=== PATIENT | female | born 1985 | race Caucasian/White ===

== ENCOUNTER 2017-05-03 18:12 | Outpatient (CLI) | payer MEDICAID ==
[~2017-05-03] VITALS: Ht 170.2 cm; Wt 70.1 kg
--- NOTE | 2017-05-03 19:05 | RADRPT ---
PROCEDURE: US OB biophysical profile. CLINICAL INDICATION: Intrauterine growth retardation TECHNIQUE: Multiple sonographic images of the pelvis were obtained. The images were reviewed on a PACS workstation. COMPARISON: No prior studies are available for comparison. FINDINGS: There is a single viable intrauterine gestation. Cardiac activity is present with 158 beats per min gene. There is a vertex presentation. The placenta is anterior. There is no evidence of placental abruption. There is a normal amount of amniotic fluid with an ANH = 10.3 cm. Biophysical profile: movement 2/2 tone 2/2. breathing 2/2 ANH 2/2 Total 06/22 RPTAT: AA . IMPRESSION: Normal biophysical profile. Physician Nicki Date Time Electronically viewed and signed by Physician Nicki on 05/03/2017 19:05 /
--- NOTE | 2017-05-03 19:06 | RADRPT ---
PROCEDURE: Obstetrical ultrasound CLINICAL INDICATION: IUGR TECHNIQUE: Multiple sonographic images of the pelvis were obtained. The images were reviewed on a PACS workstation. COMPARISON: None FINDINGS: The cervix is not well visualized. There is a single viable intrauterine gestation. Cardiac activity is present with 158 beats per minute. There is a vertex presentation. The placenta is anterior. There is no evidence for an abruption or placenta previa. There is a normal amount of amniotic fluid with an ANH = 10.3 cm. Measurements were made in order to determine age. The results are as follows (cm): BPD =8.70 HC =31.36 AC =31.10 FL =6.87 Estimated gestational age by ultrasound of approximately 35 weeks, 1 day. The estimated date of delivery by ultrasound is 06/06/2017. Estimated gestational age by LMP of approximately 35 weeks, 0 days. The estimated date of delivery by LMP is 06/07/2017. EFW = 2600 grams (50th percentile) IMPRESSION: Single viable intrauterine gestation of approximately 35 weeks, 1 day . The estimated date of delivery is 06/06/2017 . Dating by ultrasound is within 1 day of dating by LMP. Cephalic presentation. Normal ANH. Estimated weight is in the 50th percentile. RPTAT: EE Physician Nicki Date Time Electronically viewed and signed by Physician Nicki on 05/03/2017 19:06 /
[2017-05-03 19:29] VITALS: BP 112/64; PULSE 80; RESP 18
[2017-05-03 21:33] LABS: ADD UMIC YES; UR BILIRUBIN (Dip) NEGATIVE (NEGATIVE); UR BLOOD (Dip) TRACE (NEGATIVE); UR CLARITY CLEAR (CLEAR); UR COLOR LT. YELLOW (YELLOW); UR GLUCOSE (Dip) NEGATIVE (NEGATIVE); UR KETONES (Dip) NEGATIVE (NEGATIVE); UR LEUKOCYTE ESTERASE (Dip) 1+ (NEGATIVE); UR NITRITE (Dip) NEGATIVE (NEGATIVE); UR TOTAL PROTEIN (Dip) NEGATIVE (NEGATIVE); UR UROBILINOGEN (Dip) 0.2 E.U./dL (0.1-1.0)
--- NOTE | 2017-05-03 21:51 | TRIAGE ---
OB Triage Datetime Report Generated by CPN: 05/03/2017 21:51 Datetime: 05/03/2017 21:20 Vaginal Exam Membrane Status: Intact Datetime: 05/03/2017 20:45 EGA: 35.0 Datetime: 05/03/2017 19:24 Time of Arrival: 05/03/2017 18:04 Arrived By: Ambulatory Arrived From: Office Chief Complaint: R/O IUGR: SENT WITH ORDERS FOR NST, BPP, EFW Movement: Present Contractions: Denies/Absent Rupture of Membranes: Denies Vaginal Bleeding: None Vaginal Discharge: Denies Abdominal Trauma: Not Applicable Patient Complaints: None Time Provider Notified: 05/03/2017 21:00 Provider Notified: Dr Huffman Initial Plan: EFM x2, BPP, EFW Datetime: 05/03/2017 19:00 Stage of : OB Triage Assessment Type: Triage Maternal Assessment Level of Consciousness: Fully Conscious Headache: Denies Blurred Vision: No Respiratory Effort: Unlabored; Regular Rhythm; Equal Expansion Breath Sounds, Left: Clear and Equal Breath Sounds, Right: Clear and Equal Nausea/Vomiting: Denies RUQ Epigastric Pain: Denies Lower Extremities Edema: None Degree: None Upper Extremities Edema: None Degree: None Facial Edema: None Temperature Route: Oral Fall Risk Assessment History of Falling: (0) No Secondary Diagnosis: (0) No Ambulatory Aid: (0) Bedrest/Nurse Assist IV Therapy: (0) No Gait: (0) Normal/Bedrest/Immobile Mental Status: (0) Oriented to Own Ability Fall Score: 0 Fall Risk Score Definition: No Risk: No action required Pain Assessment Pain Scale: 0 Pain Presence: None/Denies Pain Type: N/A
[2017-05-03 21:52] LABS: UR BACTERIA FEW; UR SQUAMOUS EPITHELIAL CELL FEW; URINE RBCS 0-2 /HPF (0)
== END 2017-05-03 21:47 | disposition home or self-care (01) ==
LOC: OBT 18:12 → L-D 18:12 → OBT 21:47
PROVIDERS: ATTEND Obstetrics & Gynecology
DX: O36.5930 Maternal care for other known or suspected poor fetal growth, third trimester, not applicable or unspecified (principal); Z3A.35 35 weeks gestation of pregnancy
CPT/HCPCS: 76815; 76818; 81001; Z7500; G0463

== ENCOUNTER 2017-05-17 15:31 | Outpatient (CLI) | payer MEDICAID ==
--- NOTE | 2017-05-04 03:24 | PN ---
Triage Information Date/Time Weeks of Gestation 35 : 1 Para: 0 Diabetes: none Additional information 32 Year-old G1 with SIUP at 35 wks referred for evaluation to R/O IUGR. She has been receiving her care with Dr. Huffman. She states good movement. She denies nausea, vomiting, shortness of breath, chest pain, headache, visual changes, vaginal bleeding or LOF. Physical Exam: General: Patient appears well, alert and oriented, NAD, appropriate mood and affect ABD: gravid, soft, non-tender. Back: No CVA tenderness (B/L) LE: No clubbing, cyanosis, edema, thigh or calf tenderness bilaterally FHT: 135 bpm , moderate variability with acceleration, no deceleration-category I SVE: closed/thick/high/ceph/intact membrane Objective Heart Rate: 140's Contractions: None Assessment/Plan 32 Year-old G1 with SIUP at 35 wks referred for evaluation to R/O IUGR. OB US performed with gestational age of 35 wks. Reactive NST. BPP: 10/10. - FHR: No sign of metabolic acidosis- Category I - s/sx of labor, preeclampsia, kick count discussed with patient , she voiced understanding. All of her questions answered. - Patient was discharged home in stable condition with the appropriate discharge instructions provided. I would like patient to have close follow-up with her primary physician or outpatient clinic in 1-2 days or return to the ER for worsening symptoms or any other urgent concerns. MIKEY DASILVA May 04, 2017 03:24
[~2017-05-17] VITALS: Ht 162.6 cm; Wt 71.1 kg
--- NOTE | 2017-05-17 16:08 | RADRPT ---
PROCEDURE: US biophysical profile. CLINICAL INDICATION: Small for gestational age. TECHNIQUE: Multiple sonographic images of the uterus were obtained. The images were revi ewed on a PACS workstation. COMPARISON: 05/03/2017. FINDINGS: There is a single live intrauterine gestation. heart rate is 152 beats per minute. The position is cephalic. The placenta is anterior grade II with no abruption or previa. The ANH is 13.6 cm. (Normal = 5-20 cm.) Breathing Movement: 2 Gross Body Movement: 2 Tone: 2 Qualitative Amniotic Fluid Volume: 2 TOTAL: 8 IMPRESSION: 1. The biophysical score is 8/8. RPTAT: QQ .Erickson Ackerman MD, MD Date Time Electronically viewed and signed by .Erickson Ackerman MD, on 05/17/2017 16:07 .R/
--- NOTE | 2017-05-17 16:09 | RADRPT ---
PROCEDURE: US OB. CLINICAL INDICATION: Small for gestational age. TECHNIQUE: Multiple sonographic images of the uterus were obtained. The images were revi ewed on a PACS workstation. COMPARISON: No prior studies are available for comparison. FINDINGS: There is a single live intrauterine gestation. heart rate is 141 beats per minute. Measurements were made in order to determine age. The results are as follows: BPD = 9.27 cm. HC = 32.65 cm. AC = 33.71 cm. FL = 7.37 cm. Estimated weight is 3252 +/- 488 grams. LMP growth percentile is 72%. Menstrual age by ultrasound dates is 37 weeks 4 days. The estimated date of delivery is 06/03/2017. Position is cephalic and placenta is anterior grade II. There is no evidence for an abruption or [place] previa. IMPRESSION: 1. Single live intrauterine gestation of 37 weeks 4 days menstrual age by ultrasound dates. 2. The estimated date of delivery is 06/03/2017. RPTAT: QQ .Erickson Ackerman MD, Date Time Electronically viewed and signed by .Erickson Ackerman MD, on 05/17/2017 16:09 .R/
[2017-05-17] MEDS ORDERED: PRENAT PO (16:16)
[2017-05-17] MEDS ORDERED: FER325 PO (16:16)
[2017-05-17] MEDS ORDERED: FOLI-49 PO (16:16)
[2017-05-17] MEDS ORDERED: CALC600T11 PO (16:16)
[2017-05-17 16:17] VITALS: BP 104/75; PULSE 92; RESP 18
[2017-05-17 16:19] VITALS: Ht 162.6 cm; Wt 71.1 kg
--- NOTE | 2017-05-17 17:06 | QN ---
Documentation Comment iup 37 weeks sent for IUGR eval vss exam wnl us wnl 72 percentile a/p iup 37 weeks AGA- no IUGR dc h EMILY Lord MD May 17, 2017 17:06
--- NOTE | 2017-05-17 17:48 | TRIAGE ---
OB Triage Datetime Report Generated by CPN: 05/17/2017 16:59 Datetime: 05/17/2017 16:55 Vaginal Exam Dilatation (cms): 0.0 Exam By: KHEMANI Datetime: 05/17/2017 16:13 Assessment Type: Triage Maternal Assessment Level of Consciousness: Fully Conscious DTR's/Clonus: DTRs 2+; No Clonus Headache: Denies Blurred Vision: No Respiratory Effort: Unlabored; Regular Rhythm; Equal Expansion Breath Sounds, Left: Clear and Equal Breath Sounds, Right: Clear and Equal Nausea/Vomiting: Denies RUQ Epigastric Pain: Denies Lower Extremities Edema: None Degree: None Upper Extremities Edema: None Degree: None Facial Edema: None Fall Risk Assessment History of Falling: (0) No Secondary Diagnosis: (0) No Ambulatory Aid: (0) Bedrest/Nurse Assist IV Therapy: (0) No Gait: (0) Normal/Bedrest/Immobile Mental Status: (0) Oriented to Own Ability Fall Score: 0 Fall Risk Score Definition: No Risk: No action required Datetime: 05/17/2017 16:11 Time of Arrival: 05/17/2017 15:29 EGA: 37.0 Arrived By: Ambulatory Arrived From: Office Chief Complaint: PT SENT FROM OB OFFICE FOR R/O IUGR Movement: Present Contractions: Denies/Absent Rupture of Membranes: Denies Vaginal Discharge: Denies Recent Sexual Intercouse: Denies Abdominal Trauma: Not Applicable Patient Complaints: None Time Provider Notified: 05/17/2017 16:30 Provider Notified: MANJIT Initial Plan: EFW/BPP/SVE Datetime: 05/17/2017 16:08 Monitor Mode: External Monitor Mode: External US Datetime: 05/03/2017 21:40 Stage of : OB Triage Monitor Mode: External Quality: Mild Pattern: Normal: <= 5 Contractions in 10 Minutes Resting Tone [place]: Relaxed Heart Rate FHR Baseline Rate: 120 Monitor Mode: External US FHR Baseline Changes: No Baseline Change Variability: Moderate 6-25 bpm Accelerations: 15X15 Decelerations: None Category: Category I Datetime: 05/03/2017 20:48 Stage of : OB Triage Monitor Mode: External Quality: Mild Pattern: Normal: <= 5 Contractions in 10 Minutes Resting Tone [place]: Relaxed Heart Rate FHR Baseline Rate: 120 Monitor Mode: External US FHR Baseline Changes: No Baseline Change Variability: Moderate 6-25 bpm Accelerations: 15X15 Decelerations: None Category: Category I Pain Assessment Pain Scale: 2 Pain Presence: Intermittent Pain Type: Cramping Pain Location: Abdomen Vaginal Exam Dilatation (cms): 0.0 Effacement (%): 0 Station: -4 Exam By: E Satya Membrane Status: Intact Vaginal Bleeding: None Cervix, Consistency: Firm Cervix, Position: Posterior Presentation 'A': Cephalic Datetime: 05/03/2017 20:45 EGA: 35.0 Datetime: 05/03/2017 19:41 Heart Rate FHR Baseline Rate: 120 Monitor Mode: External US FHR Baseline Changes: No Baseline Change Variability: Moderate 6-25 bpm Accelerations: 15X15 Category: Category I Datetime: 05/03/2017 19:16 Stage of : OB Triage Labor Evaluation Frequency: 2-4 Monitor Mode: External Duration (sec)2399: 60 Quality: Mild Pattern: Normal: <= 5 Contractions in 10 Minutes Resting Tone [place]: Relaxed Heart Rate FHR Baseline Rate: 120 Monitor Mode: External US FHR Baseline Changes: No Baseline Change Variability: Moderate 6-25 bpm Accelerations: 15X15 Decelerations: None Category: Category I Pain Assessment Pain Scale: 0 Pain Presence: None/Denies Pain Type: N/A Datetime: 05/03/2017 19:00 Fall Score: 0 Fall Risk Score Definition: No Risk: No action required
== END 2017-05-17 17:03 | disposition home or self-care (01) ==
LOC: OBT 15:31 → L-D 15:32 → OBT 17:03
PROVIDERS: ATTEND Obstetrics & Gynecology
DX: O36.5930 Maternal care for other known or suspected poor fetal growth, third trimester, not applicable or unspecified (principal); Z3A.35 35 weeks gestation of pregnancy
CPT/HCPCS: 76815; 76818; Z7500; G0463

== ENCOUNTER 2019-02-07 08:39 | Outpatient (CLI) | payer MEDICAID ==
[~2019-02-07] VITALS: Ht 167.6 cm; Wt 69.9 kg
[~2019-02-07 08:39] MED LIST: CALC600T24 PO; FER325 PO; FOLI-49 PO; PRENAT PO
[2019-02-07 08:45] VITALS: Ht 167.6 cm; Wt 69.9 kg
--- NOTE | 2019-02-07 10:15 | TRIAGE ---
OB Triage Datetime Report Generated by CPN: 02/07/2019 10:14 Datetime: 02/07/2019 10:00 Stage of : OB Triage Maternal Assessment Level of Consciousness: Fully Conscious DTR's/Clonus: DTRs 1+ Headache: Denies Breath Sounds, Left: Clear and Equal Breath Sounds, Right: Clear and Equal Nausea/Vomiting: Denies RUQ Epigastric Pain: Denies Labor Evaluation Monitor Mode: External Resting Tone [place]: Relaxed Heart Rate FHR Baseline Rate: 135 Monitor Mode: External US Variability: Moderate 6-25 bpm Accelerations: 15X15 Decelerations: None Category: Category I Pain Assessment Pain Scale: 0 Pain Presence: None/Denies Pain Type: N/A Pain Goal: 3 Vaginal Exam Membrane Status: Intact Datetime: 02/07/2019 09:09 Maternal Assessment Level of Consciousness: Fully Conscious DTR's/Clonus: DTRs 1+ Headache: Denies Blurred Vision: No Respiratory Effort: Unlabored Breath Sounds, Left: Clear and Equal Breath Sounds, Right: Clear and Equal Nausea/Vomiting: Denies RUQ Epigastric Pain: Denies Facial Edema: None Labor Evaluation Monitor Mode: External Resting Tone [place]: Relaxed Heart Rate FHR Baseline Rate: 135 Monitor Mode: External US Variability: Moderate 6-25 bpm Accelerations: 15X15 Decelerations: None Category: Category I Pain Assessment Pain Scale: 0 Pain Presence: None/Denies Pain Type: N/A Pain Goal: 3 Vaginal Exam Membrane Status: Intact Datetime: 02/07/2019 08:40 Stage of : OB Triage Assessment Type: Triage Maternal Assessment Level of Consciousness: Fully Conscious DTR's/Clonus: DTRs 2+; No Clonus Headache: Denies Blurred Vision: No Respiratory Effort: Unlabored; Regular Rhythm; Equal Expansion Breath Sounds, Left: Clear and Equal Breath Sounds, Right: Clear and Equal Nausea/Vomiting: Denies RUQ Epigastric Pain: Denies Lower Extremities Edema: None Degree: None Upper Extremities Edema: None Degree: None Facial Edema: None Fall Risk Assessment History of Falling: (0) No Secondary Diagnosis: (0) No Ambulatory Aid: (0) Bedrest/Nurse Assist IV Therapy: (0) No Gait: (0) Normal/Bedrest/Immobile Mental Status: (0) Oriented to Own Ability Fall Score: 0 Fall Risk Score Definition: No Risk: No action required Datetime: 02/07/2019 08:33 Time of Arrival: 02/07/2019 08:33 EGA: 28.0 Arrived By: Ambulatory Arrived From: Home Chief Complaint: PT CAME IN C/O DIZZINES SINCE YESTERDAY. STATES FEELING BABY MOVEMNENT AND DENIES UC'S Movement: Present Contractions: Denies/Absent Rupture of Membranes: Denies Vaginal Bleeding: None Vaginal Discharge: Denies Recent Sexual Intercouse: Denies Abdominal Trauma: Not Applicable Patient Complaints: Dizziness Additional Patient Complaints: NONE Time Provider Notified: 02/07/2019 08:40 Provider Notified: BROWN Initial Plan: MONITOR
--- NOTE | 2019-02-07 10:24 | PN ---
Triage Information Date/Time Reason for visit: Dizzy Weeks of Gestation 28+ /Para n/a Diabetes: none Hypertention: none Objective Heart Rate: 140's Contractions: None Results/Medications Result Diagram: 02/07/19 0916 02/07/19 0916 Results 24 hrs Laboratory Tests Test 02/07/19 09:16 02/07/19 09:56 White Blood Count 12.3 H Red Blood Count 3.73 L Hemoglobin 10.7 L Hematocrit 32.5 L Mean Corpuscular Volume 87.1 Mean Corpuscular Hemoglobin 28.7 L Mean Corpuscular Hemoglobin Concent 32.9 Red Cell Distribution Width 13.8 Platelet Count 281 Mean Platelet Volume 9.7 Immature Granulocytes % 1.500 H Neutrophils % 74.9 Lymphocytes % 15.6 Monocytes % 4.8 Eosinophils % 2.8 Basophils % 0.4 Nucleated Red Blood Cells % 0.0 Immature Granulocytes # 0.190 H Neutrophils # 9.2 H Lymphocytes # 1.9 Monocytes # 0.6 Eosinophils # 0.3 Basophils # 0.1 Nucleated Red Blood Cells # 0.0 Glucose Level 78 Bedside Glucose 86 Disposition: Discharge Assessment/Plan Labs reviewed No Dizziness anymore No other complaints BPP 08/24 [employer] answered Follow up with her provider Precautions discussed SUBHASH SARAVIA M.D. Feb 07, 2019 10:24
== END 2019-02-07 10:10 | disposition home or self-care (01) ==
LOC: L-D 08:39 → OBT 08:39
PROVIDERS: ATTEND Obstetrics & Gynecology
DX: O26.892 Other specified pregnancy related conditions, second trimester (principal); Z3A.28 28 weeks gestation of pregnancy; R42 Dizziness and giddiness
CPT/HCPCS: 36415; 76817; 76818; 82947; 82962; 85025; Z7500; G0463

== ENCOUNTER 2019-04-30 06:46 | Inpatient (IN) | payer MEDICAID ==
[~2019-04-30] VITALS: Ht 165.1 cm; Wt 74.6 kg
[~2019-04-30 06:46] MED LIST changes: -CALC600T24 PO; -FER325 PO; -FOLI-49 PO
[2019-04-30 07:35] VITALS: Ht 165.1 cm; Wt 74.6 kg
[2019-04-30 07:36] VITALS: BP 102/64; PULSE 81
[2019-04-30] MEDS ORDERED: METHYLERGONOVINE 0.2 MG INJ IM PRN ×2 (08:30→14:30)
[2019-04-30] MEDS ORDERED: OXYTOCIN 30 UNITS/LR 500 ML IV PRN ×2 (08:30→14:30)
[2019-04-30] MEDS ORDERED: MISOPROSTOL 200 MCG TAB PR PRN ×2 (08:30→14:30)
[2019-04-30] MEDS ORDERED: CARBOPROST 250 MCG INJ IM PRN ×2 (08:30→14:30)
[2019-04-30] MEDS ORDERED: OXYTOCIN 30 UNITS/LR 500 ML IV SCH ×4 (08:30→14:23)
[2019-04-30] MEDS ORDERED: LIDOCAINE 1% (MPF) 30 ML INJ INJ PRN (08:30)
[2019-04-30] MEDS ORDERED: BUTORPHANOL 2 MG INJ IV PRN ×2 (08:30)
[2019-04-30] MEDS: LACTATED RINGER'S 1,000 ML IV SCH ×2 (08:36→10:35)
--- NOTE | 2019-04-30 09:58 | HP ---
Date/Time of Note Date/Time of Note DATE: 04/30/19 TIME: 09:57 OB - History Hx of Present Free Text/Dictation 39+ : 2 Para: 1 Care: Good Care Ultrasounds: Normal mid trimester US Obstetrical Complications: None Medical Complications: None Past Family/Social History * Past Medical, Surgical, Family and Obstetric Histories reviewed from chart. OB Admission Exam Vital Signs Vital Signs Vital Signs Date Temp Pulse Resp B/P (MAP) Pulse Ox O2 O2 Flow FiO2 Time Delivery Rate 04/30/19 98.7 81 102/64 07:36 (77) Physical Exam Cervical Dilatation: 5cm Effacement: 75% Station: -1 Membranes: Intact Heart Rate: 140's Accelerations: Accelerations Present Decelerations: No Decelerations Varibility: Moderate Contractions on Admission: 6-10 Minutes Apart Last 72 hours Lab Results CBC & BMP 04/30/19 09:24 OB Assessment/Plan Reason for admission: observation Other Assessment: PMH Denies PSH Denies Plan: Expectant Management SUBHASH SARAVIA M.D. Apr 30, 2019 09:58
--- NOTE | 2019-04-30 10:13 | PREAC ---
Date/Time of Note Date/Time of Note DATE: 04/30/19 TIME: 10:11 Anesthesia Eval and Record Evaluation Time Pre-Procedure Interview DATE: 04/30/19 TIME: 10:11 Age 34 Sex female NPO: 8 hrs Preoperative diagnosis IUP Planned procedure L&D Epidural Past Medical History Past Medical History: Includes : : Surgery & Anesthesia Issues No known issue Meds Anticoagulation: No Beta Yoav within 24 hr: No Reason Beta Yoav not given: Pt. not on B-Yoav Reported Medications Multivit/Min/Fol Ac/Iron/Pren* ( S*) 1 Tab Tab, 1 TAB PO DAILY, TAB 05/17/17 Current Medications Lactated Ringer's 1,000 ml @ 125 mls/hr Q8H IV Last administered on 04/30/19at 08:36; Admin Dose 125 MLS/HR; Start 04/30/19 at 08:17 Butorphanol Tartrate (Stadol) 1 mg Q2H PRN IV .PAIN SCALE 1-5; Start 04/30/19 at 08:30 Butorphanol Tartrate (Stadol) 2 mg Q2H PRN IV .PAIN SCALE 6-10; Start 04/30/19 at 08:30 Lidocaine (Xylocaine 1% (Mpf)) 30 ml ONCE PRN INJ .EPISIOTOMY; Start 04/30/19 at 08:30 Oxytocin/Lactated Ringer's 500 ml @ 500 mls/hr ONCE POST IV ; Start 04/30/19 at 08:30 Oxytocin/Lactated Ringer's 500 ml @ 125 mls/hr POST IV ; Start 04/30/19 at 08:30 Oxytocin/Lactated Ringer's 500 ml @ 0 mls/hr ONCE PRN IV .VAGINAL BLEEDING; Start 04/30/19 at 08:30 Methylergonovine Maleate (Methergine) 0.2 mg ONCE PRN IM .VAGINAL BLEEDING; Start 04/30/19 at 08:30 Carboprost Tromethamine (Hemabate) 250 mcg ONCE PRN IM .VAGINAL BLEEDING; Start 04/30/19 at 08:30 Misoprostol (Cytotec) 1,000 mcg ONCE PRN [place] .VAGINAL BLEEDING; Start 04/30/19 at 08:30 Oxytocin/Lactated Ringer's 500 ml @ 0 mls/hr FOR AUGMENTATION IV ; Start 04/30/19 at 08:30 Meds reviewed: Yes Allergies Coded Allergies: No Known Allergy (Unverified , 02/07/19) Allergies Reviewed: Yes Labs/Studies Labs Reviewed: Reviewed by anesthesiologist Result Diagram: 04/30/19 0924 Laboratory Tests 04/30/19 09:24 test: N/A Studies: ECG Pre-procedure Exam Last vitals Vital Signs Date Temp Pulse Resp B/P (MAP) Pulse Ox O2 O2 Flow FiO2 Time Delivery Rate 04/30/19 98.7 81 102/64 07:36 (77) Airway: Adequate mouth opening, Adequate thyromental dist Mallampati: Mallampati II Teeth: Normal Lung: Normal Heart: Normal ASA Physical Status ASA physical status: 2 Emergency: None Planned Anesthetic Neuraxial: Epidural Pre-operative Attestations Prior to commencing anesthesia and surgery, the patient was re-evaluated, there was verification of: *The patient's identity *The results of appropriate recent lab work and preoperative vital signs *The above evaluation not changing prior to induction *Anesthetic plan, risk benefits, alternative and complications discussed with patient/family; questions answered; patient/family understands, accepts and wishes to proceed. AINSLEY WALL MD Apr 30, 2019 10:13
[2019-04-30] MEDS ORDERED: NALOXONE (0.4 MG/ML) INJ IV PRN (10:30)
[2019-04-30] MEDS ORDERED: ONDANSETRON 4 MG INJ IV PRN (10:30)
[2019-04-30] MEDS ORDERED: DIPHENHYDRAMINE 50 MG INJ IV PRN (10:30)
[2019-04-30] MEDS ORDERED: FENTAnyl 2MCG/ML-ROPIV 0.2% 100 ML BAG EPI SCH (10:30)
--- NOTE | 2019-04-30 14:23 | LDN ---
Date/Time of Note Date/Time of Note DATE: 04/30/19 TIME: 13:46 Delivery Summary Weeks of Gestation 39+ Placenta Delivered: Spontaneously Meconium: Light Episiotomy: No Perineal laceration: 1 Anesthesia type: Epidural Estimated blood loss: 200 Sponge & Needle done & correct: Yes All needle counts correct: Yes Any foreign bodies felt in the: No Infant Delivery Information Apgars 1 Minute: 9 5 Minute: 9 Suctioning Nose & mouth suctioned at tristen: Yes Delee suction performed: Yes Umbilical Cord Umbilical cord with: 3 Vessels Nuchal cord present X: 1 Cord Blood was obtained: Yes Mother & Baby Disposition Disposition Mom & Baby to Maternity; Good: Yes Baby to NICU: No SUBHASH SARAVIA M.D. Apr 30, 2019 13:56
[2019-04-30] MEDS ORDERED: NACL 0.9% 3 ML SYG IV SCH (14:30)
[2019-04-30] MEDS ORDERED: ZOLPIDEM 5 MG TAB PO PRN (14:30)
[2019-04-30] MEDS ORDERED: WITCH HAZEL/GLYCERIN PAD PR PRN (14:30)
[2019-04-30] MEDS ORDERED: BENZOCAINE 20% 56 ML SPRAY TOP PRN (14:30)
[2019-04-30] MEDS ORDERED: OXYCODONE/ASPIRIN (4.88/325) TAB PO PRN (14:30)
[2019-04-30 15:33] VITALS: BP 110/55; PULSE 79; RESP 18
[2019-04-30 16:30] VITALS: BP 108/69; PULSE 70; RESP 18
[2019-04-30] MEDS: LANOLIN HPA 1 PKT TOP PRN (16:32)
[2019-04-30] MEDS: IBUPROFEN 600 MG TAB PO SCH (18:26)
[2019-04-30 20:20] VITALS: BP 107/68; PULSE 76; RESP 18
[2019-04-30] MEDS: SENNA/DOCUSATE NA (8.6MG/50MG) TAB PO SCH (20:56)
--- NOTE | 2019-04-30 23:00 | PAC ---
Date/Time of Note Date/Time of Note DATE: 04/30/19 TIME: 23:00 Post-Anesthesia Notes Post-Anesthesia Note Last documented vital signs Vital Signs Date Temp Pulse Resp B/P (MAP) Pulse Ox O2 O2 Flow FiO2 Time Delivery Rate 04/30/19 98.0 76 18 107/68 Room Air 20:20 (81) Activity: WNL Respiratory function: WNL Cardiovascular function: WNL Mental status: Baseline Pain reasonably controlled: Yes Hydration appropriate: Yes Nausea/Vomiting absent: Yes Comments BP:124/67, P:78, Spo2:100%, T:98,8 AINSLEY WALL MD Apr 30, 2019 23:00
[2019-05-01] MEDS: LACTATED RINGER'S 1,000 ML IV SCH (00:17)
[2019-05-01 00:30] VITALS: BP 102/64; PULSE 72; RESP 18
[2019-05-01 03:40] VITALS: BP 95/62; PULSE 67; RESP 18
[2019-05-01] MEDS: IBUPROFEN 600 MG TAB PO SCH ×4 (03:45→18:00)
[2019-05-01 08:00] VITALS: BP 91/76; PULSE 66; RESP 18
[2019-05-01] MEDS: SENNA/DOCUSATE NA (8.6MG/50MG) TAB PO SCH ×2 (08:48→20:18)
[2019-05-01 15:40] VITALS: BP 108/61; PULSE 68; RESP 16
--- NOTE | 2019-05-01 18:09 | QN ---
Documentation Comment day #1 Status post Patient stable and afebrile Vital signs stable VS - Last 72 Hours, by Label Date Temp Pulse Resp B/P (MAP) Pulse Ox O2 O2 Flow FiO2 Time Delivery Rate 05/01/19 97.7 68 16 108/61 15:40 (77) 05/01/19 98.3 66 18 91/76 (81) Room Air 08:00 05/01/19 98.2 67 18 95/62 (73) Room Air 03:40 05/01/19 98.6 72 18 102/64 Room Air 00:30 (77) 04/30/19 98.0 76 18 107/68 Room Air 20:20 (81) 04/30/19 98.1 70 18 108/69 Room Air 16:30 (82) 04/30/19 98.1 70 18 108/69 Room Air 16:30 (82) 04/30/19 97.8 79 18 110/55 Room Air 15:33 (73) 04/30/19 98.7 81 102/64 07:36 (77) Hematology - 72 Hrs Test 04/30/19 09:24 05/01/19 07:01 Hematocrit 34.2 % (37.0-47.0) L 32.5 % (37.0-47.0) L Hemoglobin 11.4 g/dl (12.0-16.0) L 10.9 g/dl (12.0-16.0) L Mean Corpuscular 28.1 pg (29.0-33.0) L 28.6 pg (29.0-33.0) L Hemoglobin Mean Corpuscular 33.3 g/dl (32.0-37.0) 33.5 g/dl (32.0-37.0) Hemoglobin Concent Mean Corpuscular Volume 84.2 fl (82.0-101.0) 85.3 fl (82.0-101.0) Mean Platelet Volume 10.2 fl (7.4-10.4) 11.0 fl (7.4-10.4) H Platelet Count 264 10^3/UL (140-415) 248 10^3/UL (140-415) Red Blood Count 4.06 10^6/ul (4.20-5.40) 3.81 10^6/ul (4.20-5.40) L L Red Cell Distribution 14.9 % (11.5-14.5) H 14.7 % (11.5-14.5) H Width White Blood Count 14.3 10^3/ul (4.8-10.8) 13.4 10^3/ul (4.8-10.8) H H Abdomen soft, fundus firm Perineum intact Extremities nontender Assessment and plan Patient stable and doing well Continue with routine care HEIDY NERI MD May 01, 2019 18:09
[2019-05-01 20:00] VITALS: BP 105/55; PULSE 70; RESP 18
[2019-05-02] MEDS: IBUPROFEN 600 MG TAB PO SCH ×3 (00:30→12:00)
[2019-05-02 04:00] VITALS: BP 107/69; PULSE 75; RESP 18
[2019-05-02 08:00] VITALS: BP 104/58; PULSE 66; RESP 17
[2019-05-02] MEDS ORDERED: DIPHTH/TET/ACEL PERTUSS (ADULT) 0.5 ML VIAL IM* ONE (09:00)
[2019-05-02] MEDS: LANOLIN HPA 1 PKT TOP PRN (09:16)
[2019-05-02] MEDS: SENNA/DOCUSATE NA (8.6MG/50MG) TAB PO SCH (09:16)
--- NOTE | 2019-05-03 02:28 | DS ---
Date/Time of Note Date/Time of Note DATE: 05/03/19 TIME: 02:26 Obstetrical Discharge Record Final Diagnosis Final Diagnosis: Term delivered Other Final Diagnosis Late entry note. Patient seen on 05/02/2019 34 years old [id number] s/p normal vaginal delivery. day 2. She is ambulating and tolerating regular diet. She is voiding without difficulty. Pain is controlled on current medication. She is afebrile, vital signs stable. She discharged home in stable condition with follow-up in 2 1 6 weeks Vaginal Delivery Obstetrical Delivery: Spontaneous Condition on Discharge Physical Assessment Last Vitals: Vital Signs Date Temp Pulse Resp B/P (MAP) Pulse Ox O2 O2 Flow FiO2 Time Delivery Rate 05/02/19 98.2 66 17 104/58 Room Air 08:00 (73) Voiding: Yes Bowel Movement: Yes Breast: Soft, non-tender Fundus: Firm Calf Tenderness: No Patient Condition: Stable MIKEY DASILVA May 03, 2019 02:28
--- NOTE | 2019-05-03 13:52 | DELSUM ---
Delivery Summary A-C Datetime Report Generated by CPN: 05/03/2019 13:51 DELIVERY PERSONNEL Riveter Helper: Louis, [place] MATERNAL INFORMATION Delivery Anesthesia: Epidural Medications in Delivery: pitocin Delivery QBL (ml): 200 Placenta Cultured: No Maternal Complications: None LABOR SUMMARY EDC: 05/02/2019 00:00 No. Babies in Womb: 1 Attempted: No Labor Anesthesia: Epidural LABOR INFORMATION Reason for Induction: Not Applicable Onset of Labor: 04/29/2019 22:00 Complete Dilatation: 04/30/2019 13:14 Oxytocin: Augmentation Group B Beta Strep: Negative Antibiotics # of Doses: 0 Steroids Given: None Reason Steroids Not Administered: Not Applicable MEMBRANES Membranes Rupture Method: Spontaneous Rupture of Membranes: 04/29/2019 22:00 Length of Rupture (hr): 15.55 Amniotic Fluid Color: Clear Amniotic Fluid Amount: Small Amniotic Fluid Odor: Normal STAGES OF LABOR Stage 1 hr: 15 Stage 1 min: 14 Stage 2 hr: 0 Stage 2 min: 19 Stage 3 hr: 0 Stage 3 min: 2 Total Time in Labor hr: 15 Total Time in Labor min: 35 VAGINAL DELIVERY Episiotomy: None Laceration Extension: First Degree Laceration Type: Perineal Laceration Repair: Yes Initial Vag Sponge Count: 10 Final Vag Sponge Count: 10 Initial Vag Sharps Count: 1 Final Vag Sharps Count: 2 Sponge Count Correct: Yes; Vaginal Sweep Performed Sharps Count Correct: Yes Count Comment: 1 sharp added BABY A INFORMATION Delivery Date/Time: 04/30/2019 13:33 Method of Delivery: Vaginal Born in Route : No : N/A Forceps: N/A Vacuum Extraction: N/A Shoulder Dystocia : No SHOULDER DYSTOCIA BABY A Infant Delivery Date/Time: 04/30/2019 13:33 PRESENTATION/POSITION BABY A Presentation: Cephalic Cephalic Presentation: Vertex Vertex Position: Left Occipital Anterior Breech Presentation: N/A PLACENTA INFORMATION BABY A Placenta Delivery Time : 04/30/2019 13:35 Placenta Method of Delivery: Spontaneous Placenta Status: Delivered SCORES BABY A Heart Rate 1 min: >100 bpm Resp Effort 1 min: Good Cry Reflex Irritability 1 min: Cough/Sneeze/Pulls Away Muscle Tone 1 min: Active Motion Color 1 min: Body [place], Extremit Blue Resuscitation Effort 1 min: Tactile Stimulation SCORE 1 MIN: 9 Heart Rate 5 min: >100 bpm Resp Effort 5 min: Good Cry Reflex Irritability 5 min: Cough/Sneeze/Pulls Away Muscle Tone 5 min: Active Motion Color 5 min: Body [place], Extremit Blue SCORE 5 MIN: 9 INFANT INFORMATION BABY A Gestational Age at Delivery: 39.5 Gestational Status: Full Term- 39- 40.6 Weeks Outcome : Liveborn Infant Condition : Stable Infant Sex: Male IDENTIFICATION/MEDS BABY A ID Band Number: [id number] ID Band Location: Right Leg; Left Arm Sensor Number: [id number] WEIGHT/LENGTH BABY A Infant Birthweight (gm): 3640 Infant Weight (lb): 8 Weight (oz): 0 Length (in): 21.00 Length (cm): 53.34 CORD INFORMATION BABY A No. Cord Vessels: 3 Nuchal Cord : Around Neck x1, Loose Cord Blood Taken: Yes Suction: Mouth; Nose ASSESSMENT BABY A Infant Complications: None Physical Findings at Delivery: Within Normal Limits Respirations: Appears Normal Office Messenger Helper/ALS Called : No Infant Care By: gerardo garcia Transferred To: Remains with Mother
== END 2019-05-02 13:05 | disposition home or self-care (01) | DRG 807 ==
LOC: OBT 06:46 → L-D 06:47 → OBT 08:00 → L-D 08:00 → PP1 15:35
PROVIDERS: ADMIT Obstetrics & Gynecology; ATTEND Obstetrics & Gynecology
PROC: 10E0XZZ Delivery of Products of Conception, External Approach (ICD-10-PCS; principal; 2019-04-30)
PROC: 0HQ9XZZ Repair Perineum Skin, External Approach (ICD-10-PCS; 2019-04-30)
DX: O70.9 Perineal laceration during delivery, unspecified (principal); Z37.0 Single live birth; O69.81X0 Labor and delivery complicated by cord around neck, without compression, not applicable or unspecified; Z3A.39 39 weeks gestation of pregnancy; Z23 Encounter for immunization
CPT/HCPCS: 62322; 76815; 85025; 85610; 85730; 86592; 86850; 86900; 86901; 87340; 90715; G0463; J2590; J3010; J7120